=== PATIENT | female | born 1990 | race African-American/Black ===

== ENCOUNTER 2018-12-29 15:55 | Inpatient (IN) | payer OTHER ==
[2018-12-29] MEDS ORDERED: DEXTROSE 5%-LACTATED RINGERS 1,000 ML IV SCH (16:15)
[2018-12-29] MEDS ORDERED: AMPICILLIN SODIUM 2 GM VIAL IVPB ONE (16:15)
[2018-12-29 17:13] VITALS: BMI 39.8
[2018-12-29 18:57] LABS: BASO % 0.5 % (0-2.0); EOS % 0.6 % (0-4.5); HEMATOCRIT 36.4 % (32.4-45.2); HEMOGLOBIN 11.8 GM/dL (10.7-15.3); LYMPH % 18.2 % (8-40); MCH 27.7 pg (25.7-33.7); MCHC 32.4 g/dl (32.0-36.0); MEAN CELL VOLUME 85.7 fl (80-96); MEAN PLT VOLUME 10.9 fl (7.5-11.1); MONO % 8.9 % (3.8-10.2); NEUT % 71.8 % (42.8-82.8); PLATELET COUNT 186 K/MM3 (134-434); RBC 4.25 M/mm3 (3.60-5.2); RDW 14.5 % (11.6-15.6); WHITE BLOOD COUNT 8.6 K/mm3 (4.0-10.0)
[2018-12-29 19:04] LABS: INR 0.92 (0.83-1.09); PROTHROMBIN TIME (PATIENT) 10.8 SEC (9.7-13.0)
[2018-12-29 19:06] LABS: ACTIVATED PTT 27.9 SECONDS (25.2-36.5)
[2018-12-29 19:30] LABS: BLOOD UREA NITROGEN 9.1 mg/dL (7-18); CALCIUM 8.4 mg/dL (8.5-10.1); CREATININE 0.7 mg/dL (0.55-1.3); POTASSIUM 4.2 mmol/L (3.5-5.1)
[2018-12-29] MEDS ORDERED: AMPICILLIN SODIUM 1 GM VIAL ONE (20:58)
[2018-12-29] MEDS: AMPICILLIN SODIUM 1 GM VIAL IVPB SCH (21:00)
[2018-12-29] MEDS ORDERED: DINOPROSTONE 10 MG VAGINAL SUPPOSITORY VG ONE (21:15)
--- NOTE | 2018-12-29 22:23 | PN ---
Ante-Partal Exam - Subjective Subjective: I was asked by Dr. Nelson to begin cervical ripening for this patient. Pt was discussed with Dr. Nelson, chart was reviewed, info & Hx were discussed with pt. She is a 28yo P0 with at EGA 40w6d admitted with PROM and not in labor. Pt's care was complicated by late care visit at ~26wks, maternal obesity, post term , prior Hx of PCOS. She had a positive vaginal GBS cx. Vital Signs: Vital Signs Temperature 99.8 F H 12/29/18 20:00 Pulse Rate 82 12/29/18 20:00 Respiratory Rate 16 12/29/18 20:00 Blood Pressure 139/89 12/29/18 20:00 O2 Sat by Pulse Oximetry (%) Bleeding: No Headache: No Visual changes: No Right upper quadrant pain: No Pain (scale 1-10): 0 - Contractions Contractions: No - Exam during Labor Heart Rate: 140 Variability: Moderate Heart Rate Location: Midline Category: I Monitor Accelerations: Present Monitor Decelerations: None Exam: Vaginal Dilatation (cm): 0 Amniotic Membrane Status: Leaking Nitrazine Test: Positive Amniotic Fluid: Clear Presentation: Vertex Station: -4 Remarks: Adequate Gynecoid pelvimetry, EFW 8.5 lbs by Enrique's maneuvers. - Intrapartum Hemorrhage Risk Medium Risk Factors: None High Risk Factors: None Risk Score: 0 Risk Level: Low Risk - Assessment/Plan Assessment/Plan: 28yo P0 with PROM, not in labor. No contractions reported by patient or noted on monitor. Fetus with Category I tracing and requires no intervention. Cervix is unfavorable. Gynecoid pelvimetry. We had long discussion re: risks, benefits , and alternatives of labor induction. I explained the options of expectant management awaiting spontaneous labor, induction of labor, and elective section. The risks of uterine tachysystole, distress, uterine rupture, need for emergency C/S, hemorrhage, infection, scarring, etc. were discussed. We also discussed the risks of meconium aspiration, shoulder dystocia , and anesthesia options. The pt requested to proceed with Cervidil cervical ripening and labor induction. We discussed the alternative methods of induction with Cytotec, Folley ballon, and pitocin. The pt prefers Cervidil followed by pitocin, if needed. Further patient care and labor management are per Dr. Nelson. Pt is aware of that.
[2018-12-30] MEDS: AMPICILLIN SODIUM 1 GM VIAL IVPB SCH ×6 (01:00→21:00)
[2018-12-30] MEDS ORDERED: AMPICILLIN SODIUM 1 GM VIAL ONE ×6 (01:04→20:39)
[2018-12-30] MEDS ORDERED: SODIUM CHLORIDE 100 ML IVPB ONE ×3 (07:19→15:28)
[2018-12-30] MEDS ORDERED: DINOPROSTONE 10 MG VAGINAL SUPPOSITORY VG ONE (10:00)
--- NOTE | 2018-12-30 10:03 | HP ---
Past Medical History - Admission Chief Complaint: Leakage of fluid History of Present Illness: 28 yo , @ 40.6 weeks gestation, EDC 12/23/18, admitted for rupture of membrane. Upon admission cervix was closed. History Source: Patient Limitations to Obtaining History: No Limitations - Past Medical History ...: 1 ...Para: 0 ...EDC by Lorenzo: 12/23/18 - Past Surgical History Past Surgical History: Yes: None Hx Myomectomy: No Hx Transabdominal Cerclage: No - Smoking History Smoking history: Never smoked Have you smoked in the past 12 months: No Aproximately how many cigarettes per day: 0 - Alcohol/Substance Use Hx Alcohol Use: No History of Substance Use: reports: None - Social History Usual Living Arrangement: Yes: With Parent History of Recent Travel: No Home Medications - Allergies Allergies/Adverse Reactions: Allergies Allergy/AdvReac Type Severity Reaction Status Date / Time No Known Allergies Allergy Verified 12/29/18 16:59 - Home Medications Home Medications: Ambulatory Orders Pnv No.95/Ferrous Fum/Folic AC [ Vitamin Tablet] 1 each PO DAILY Family Medical History Family History: Unremarkable Review of Systems - Review of Systems Constitutional: reports: No Symptoms Eyes: reports: No Symptoms HENT: reports: No Symptoms Neck: reports: No Symptoms Cardiovascular: reports: No Symptoms Respiratory: reports: No Symptoms Gastrointestinal: reports: No Symptoms Genitourinary: reports: Other (Leakage of fluid) Breasts: reports: No Symptoms Reported Musculoskeletal: reports: No Symptoms Integumentary: reports: No Symptoms Neurological: reports: No Symptoms Endocrine: reports: No Symptoms Hematology/Lymphatic: reports: No Symptoms Psychiatric: reports: No Symptoms Pain Intensity: 0 Physical Exam - Maternity Vital Signs: Vital Signs Temperature 98.1 F 12/30/18 09:00 Pulse Rate 80 12/30/18 09:00 Respiratory Rate 18 12/30/18 09:00 Blood Pressure 133/84 12/30/18 09:00 O2 Sat by Pulse Oximetry (%) Constitutional: Yes: Well Nourished Eyes: Yes: Conjunctiva Clear HENT: Yes: Atraumatic Neck: Yes: Supple Cardiovascular: Yes: Regular Rate and Rhythm Lungs: Clear to auscultation - Abdominal Exam/OB Number of Fetuses: Single Presentation: Vertex - Vaginal Exam/OB Amniotic Membrane Status: Ruptured Amniotic Fluid: Yes: Clear Presentation: Vertex/Position Station: -3 - Physical Exam Musculoskeletal: Yes: WNL Extremities: Yes: WNL ...Motor Strength: WNL Psychiatric: Yes: Alert, Oriented - Labs Lab Results: CBC, BMP 12/29/18 18:10 12/29/18 18:10 Problem List - Problems (1) Postmaturity , 40-42 weeks gestation Code(s): O48.0 - POST-TERM (2) Rupture of membranes with clear amniotic fluid Code(s): GEK5277 - Assessment/Plan Spontaneous rupture of membrane at 40 weeks Admit to L&D Cervidil induction
[2018-12-30] MEDS: DEXTROSE 5%-LACTATED RINGERS 1,000 ML IV SCH (12:30)
[2018-12-30] MEDS ORDERED: OXYTOCIN 30 UNITS in 0.9% NS 30 UNIT/500 ML INFUS.BAG IVPB ONE (21:33)
--- NOTE | 2018-12-30 21:41 | PN ---
Progress Note (short form) - Note Progress Note: 28 yo Para 0, @ 41 weeks gestation, EDC 12/23/18, admitted for spontaneous rupture of membrane, is status post cervidil induction. She had 2 cervidils placed over the las 24 hours but the cervix failed to dilate. FHR : Reassuring [place] : + irregular contractions VE : Cervix closed, + leakage of fluid A/P : Spontaneous rupture of membrane Status post cervidil Pitocin augmentation Analgesia as needed Problem List - Problems (1) Postmaturity , 40-42 weeks gestation Code(s): O48.0 - POST-TERM (2) Rupture of membranes with clear amniotic fluid Code(s): [id number] -
[2018-12-30] MEDS ORDERED: OXYTOCIN 30 UNITS in 0.9% NS 30 UNIT/500 ML INFUS.BAG IVPB SCH (21:45)
[2018-12-31] MEDS ORDERED: AMPICILLIN SODIUM 1 GM VIAL ONE ×5 (00:50→17:03)
[2018-12-31] MEDS: AMPICILLIN SODIUM 1 GM VIAL IVPB SCH ×6 (01:00→20:30)
[2018-12-31] MEDS ORDERED: BUTORPHANOL TARTRATE 2 MG/ML VIAL IVPUSH PRN (01:34)
[2018-12-31] MEDS ORDERED: PROMETHAZINE HCL 25 MG/1 ML VIAL IVPB PRN (01:34)
[2018-12-31] MEDS ORDERED: BUTORPHANOL TARTRATE 1 MG/ML VIAL ONE ×2 (01:35)
[2018-12-31] MEDS ORDERED: ELECTROLYTE-148 SOLN 500 ML IV ONE ×2 (07:00→20:35)
--- NOTE | 2018-12-31 07:20 | PN ---
Progress Note (short form) - Note Progress Note: 28 yo Para 0, @ 41 weeks gestation, EDC 12/23/18, admitted for spontaneous rupture of membrane, is status post cervidil induction. She's now on Pitocin augmentation. She c/o moderate discomfort. She had one dose of stadol over night. FHR : Reassuring [place] : + irregular contractions VE : Cervix : 4/100/-1 A/P : Spontaneous rupture of membrane Status post cervidil Continue pitocin augmentation Consider epidural anesthesia Problem List - Problems (1) Postmaturity , 40-42 weeks gestation Code(s): O48.0 - POST-TERM (2) Rupture of membranes with clear amniotic fluid Code(s): LAW3691 -
[2018-12-31] MEDS ORDERED: FENTANYL/BUPIVACAINE/NS/PF - PCEA - 50 ML DISP.SYRIN EP ONE ×3 (08:34→18:51)
[2018-12-31] MEDS ORDERED: ELECTROLYTE-148 SOLN 1,000 ML IV SCH (08:45)
--- NOTE | 2018-12-31 08:48 | PN ---
Ante-Partal Exam - Subjective Subjective: PT comfortable s/p epidural. Vital Signs: Vital Signs Temperature 98.3 F 12/31/18 07:00 Pulse Rate 93 H 12/31/18 07:00 Respiratory Rate 20 12/31/18 07:00 Blood Pressure 123/72 12/31/18 07:00 O2 Sat by Pulse Oximetry (%) Bleeding: Yes Bleeding Description: Mild Headache: No Visual changes: No Right upper quadrant pain: No Pain (scale 1-10): 0 - Contractions Contractions: Yes Regularity: Regular - Exam during Labor Heart Rate: 145 Variability: Moderate Category: I Monitor Accelerations: Present Monitor Decelerations: None (had one prolonged deceleration s/p epidural, recovered, now cat 1) Exam: Vaginal Dilatation (cm): 6 Effacement (%): 90 Amniotic Membrane Status: Ruptured Nitrazine Test: Positive Presentation: Vertex Station: -1 - Assessment/Plan Assessment/Plan: Pt comfortable s/p epidural continue pitocin re evaluate in 3-4 hours/prn continue ampicillin
[2018-12-31] MEDS ORDERED: FENTANYL/BUPIVACAINE/NS/PF - PCEA - 50 ML DISP.SYRIN EP SCH (08:55)
[2018-12-31] MEDS ORDERED: NALOXONE HCL 0.4 MG/ML VIAL IVPUSH PRN (08:57)
[2018-12-31] MEDS: DEXTROSE 5%-LACTATED RINGERS 1,000 ML IV SCH (11:51)
--- NOTE | 2018-12-31 14:08 | PN ---
Ante-Partal Exam - Subjective Subjective: Pt comfortable. Vital Signs: Vital Signs Temperature 98.3 F 12/31/18 13:00 Pulse Rate 83 12/31/18 12:45 Respiratory Rate 20 12/31/18 12:45 Blood Pressure 135/84 12/31/18 12:45 O2 Sat by Pulse Oximetry (%) 98 12/31/18 12:45 Bleeding: Yes Bleeding Description: Mild Headache: No Visual changes: No Right upper quadrant pain: No Pain (scale 1-10): 0 - Contractions Contractions: Yes Regularity: Regular Intensity: Mod/Strong - Exam during Labor Heart Rate: 145 Category: I Monitor Accelerations: Present Monitor Decelerations: None Exam: Vaginal Dilatation (cm): 8 Effacement (%): 100 Presentation: Vertex Station: 0 - Assessment/Plan Assessment/Plan: Continue pitocin anticipate
[2018-12-31] MEDS ORDERED: LIDOCAINE HCL 1% PRESERVATIVE FREE - 30ML VIAL ONE (17:03)
[2018-12-31] MEDS ORDERED: OXYTOCIN 20 UNITS in 0.9% NS 20 UNIT/1,000 ML INFUS.BAG IV ONE (17:03)
--- NOTE | 2018-12-31 18:34 | PN ---
Ante-Partal Exam - Subjective Subjective: Pt still comfortable Vital Signs: Vital Signs Temperature 99.0 F 12/31/18 17:00 Pulse Rate 111 H 12/31/18 18:15 Respiratory Rate 20 12/31/18 18:15 Blood Pressure 122/83 12/31/18 18:15 O2 Sat by Pulse Oximetry (%) 100 12/31/18 18:15 Bleeding: Yes (bloody show) Bleeding Description: Mild Headache: No Visual changes: No Right upper quadrant pain: No - Contractions Contractions: Yes Regularity: Regular Intensity: Moderate - Exam during Labor Heart Rate: 155 Variability: Moderate Category: I Monitor Accelerations: Present Monitor Decelerations: None Exam: Vaginal Dilatation (cm): 9.5 Effacement (%): 100 Amniotic Membrane Status: Ruptured Presentation: Vertex Station: 0 - Assessment/Plan Assessment/Plan: Continue pitocin attempted pushing through anterior lip of cervix allow passive descent re evaluate for pushing when patient feels pressure/in a few hours
--- NOTE | 2018-12-31 20:32 | PN ---
Progress Note (short form) - Note Progress Note: 28 yo Para 0, @ 41 weeks gestation, EDC 12/23/18, admitted for spontaneous rupture of membrane, is status post cervidil induction. She's on Pitocin augmentation. She became fully dilated 2 hours ago but head failed to descend even after trial of pushing. FHR : Reassuring [place] : + irregular contractions VE : Fully dilated/ zero station A/P : Spontaneous rupture of membrane Status post cervidil Failure of descent Suspicion of macrosomia Consent signed for primary Anesthesia and Neonatology informed Problem List - Problems (1) Postmaturity , 40-42 weeks gestation Code(s): O48.0 - POST-TERM (2) Rupture of membranes with clear amniotic fluid Code(s): [id number] - (3) Arrest of descent, delivered, current hospitalization Code(s): O62.1 - SECONDARY UTERINE INERTIA
[2018-12-31] MEDS ORDERED: CITRIC ACID/SODIUM CITRATE 30 ML UNIT-DOSE CUP PO ONE (20:35)
[2018-12-31 20:48] LABS: BASO % 0.2 % (0-2.0); HEMATOCRIT 35.8 % (32.4-45.2); HEMOGLOBIN 11.3 GM/dL (10.7-15.3); LYMPH % 5.7 % (8-40); MCH 27.2 pg (25.7-33.7); MCHC 31.5 g/dl (32.0-36.0); MEAN CELL VOLUME 86.3 fl (80-96); MEAN PLT VOLUME 10.3 fl (7.5-11.1); MONO % 9.6 % (3.8-10.2); NEUT % 84.5 % (42.8-82.8); PLATELET COUNT 171 K/MM3 (134-434); RBC 4.15 M/mm3 (3.60-5.2); RDW 15.3 % (11.6-15.6); WHITE BLOOD COUNT 15.2 K/mm3 (4.0-10.0)
[2018-12-31 21:16] LABS: ALBUMIN 2.6 g/dl (3.4-5.0); BILIRUBIN,TOTAL 0.7 mg/dL (0.2-1); BLOOD UREA NITROGEN 8.2 mg/dL (7-18); CALCIUM 8.5 mg/dL (8.5-10.1); CREATININE 1.8 mg/dL (0.55-1.3); POTASSIUM 3.3 mmol/L (3.5-5.1); TOT PROT 6.2 g/dl (6.4-8.2)
[2018-12-31] MEDS ORDERED: LIDO 2%/EPI 1:200000 PRESRVFRE (20 ML SDVIAL) ONE (21:33)
[2018-12-31] MEDS ORDERED: ceFAZolin SODIUM 1 GM VIAL ONE (21:50)
[2018-12-31] MEDS ORDERED: ONDANSETRON 4 MG/2 ML VIAL IVPUSH PRN (21:52)
[2018-12-31] MEDS ORDERED: IBUPROFEN 600 MG TABLET (FP) PO PRN (22:32)
[2018-12-31] MEDS ORDERED: IBUPROFEN 800 MG/8 ML IJ IVPB PRN (22:32)
[2018-12-31] MEDS ORDERED: oxyCODONE HCL 5 MG TABLET PO PRN (22:32)
[2018-12-31] MEDS ORDERED: METHYLERGONOVINE MALEATE 0.2 MG/1 ML AMP IM PRN (22:32)
[2018-12-31] MEDS: OXYTOCIN 20 UNITS in 0.9% NS 20 UNIT/1,000 ML INFUS.BAG IV SCH (22:35)
--- NOTE | 2018-12-31 22:35 | OP ---
Operative Note - Note: Operative Date: 12/31/18 Pre-Operative Diagnosis: Arrest of descent Operation: Primary Low Transverse Findings: Large baby boy in cephallic presentation Post-Operative Diagnosis: Same as Pre-op Surgeon: Alda Nelson Steam Frame Operator: Mackenzie Orozco Anesthesia: Epidural Specimens Removed: Placenta Estimated Blood Loss (mls): 600 Operative Report Dictated: Yes
[2018-12-31] MEDS ORDERED: HYDROmorphone *PCA* 10MG/50ML DISP.SYRIN PCA SCH (23:00)
--- NOTE | 2019-01-01 00:23 | OP ---
DATE OF OPERATION: 12/31/2018 PREOPERATIVE DIAGNOSIS: Forty-one weeks' gestation with arrest of descent. POSTOPERATIVE DIAGNOSIS: Forty-one weeks' gestation with arrest of descent. PROCEDURE: Primary low transverse section. SURGEON: Alda Nelson MD AUTO CLAIM REPRESENTATIVE: Mackenzie Orozco MD ANESTHESIA: Epidural. COMPLICATIONS: None. ESTIMATED BLOOD LOSS: 600 mL. DESCRIPTION OF PROCEDURE: Patient was taken to the operating room where epidural anesthesia was found to be adequate. The patient was then prepped and draped in appropriate sterile fashion. A Pfannenstiel skin incision was made and carried down through the underlying layer of fascia. The fascia was incised in the midline and extended laterally. The superior aspect of the fascial incision was then grasped with Bean clamp, elevated, and the rectus muscle dissected off bluntly. Attention was then turned to the anterior aspect of the fascial incision, which in a similar fashion was then grasped with Bean clamps, elevated, and the rectus muscle was dissected off bluntly. The rectus muscles were then in the midline. The peritoneum was identified and entered sharply with Metzenbaum scissors. The peritoneal incision was extended superiorly and inferiorly with good visualization of the bladder. The bladder blade was inserted. The vesicouterine peritoneum was then grasped with a pickup and entered sharply with Metzenbaum scissors. This incision was extended laterally and a bladder flap was created digitally. The bladder blade was reinserted. The lower uterine segment was then incised using a 10-blade. This incision was extended laterally. The head was delivered atraumatically. Nose and mouth were suctioned. The cord was clamped and cut. The was handed to the awaiting financial assistant. The placenta was removed manually. The uterus was exteriorized and cleared of all clots and debris. The uterine incision was repaired using 0 Biosyn in a running locked fashion. A second layer of the same suture was used as a means to provide excellent hemostasis. The pelvis was then completely irrigated. The uterus was returned to the abdomen. The peritoneal incision was closed using 2-0 Biosyn. The fascia was reapproximated using 0 Vicryl in a running fashion. The skin was closed in the subcuticular fashion using 3-0 Vicryl. The patient tolerated the procedure well. Patient was then taken to the PACU in stable condition. PATHOLOGY: Placenta. Dimas [id number] MTDD
[2019-01-01] MEDS ORDERED: OXYTOCIN 20 UNITS in 0.9% NS 20 UNIT/1,000 ML INFUS.BAG IV ONE (01:31)
[2019-01-01 07:15] LABS: BASO % 0.2 % (0-2.0); HEMATOCRIT 32.5 % (32.4-45.2); HEMOGLOBIN 10.8 GM/dL (10.7-15.3); MCH 28.3 pg (25.7-33.7); MCHC 33.1 g/dl (32.0-36.0); MEAN CELL VOLUME 85.4 fl (80-96); MEAN PLT VOLUME 10.4 fl (7.5-11.1); MONO % 7.6 % (3.8-10.2); NEUT % 82.2 % (42.8-82.8); PLATELET COUNT 173 K/MM3 (134-434); RBC 3.81 M/mm3 (3.60-5.2); WHITE BLOOD COUNT 15.8 K/mm3 (4.0-10.0)
--- NOTE | 2019-01-01 09:36 | PN ---
Progress Note (short form) - Note Progress Note: 28yo F s/p C/S +duramorph. pain controlled. good result of anesthetic care. no comps cont current meds and plan
[2019-01-01] MEDS: FERROUS SO4 325 MG TABLET (FP) PO SCH ×2 (10:13→22:21)
[2019-01-01] MEDS: PRENATAL VITAMINS W/ FOLIC ACID TABLET (FP) PO SCH (10:14)
[2019-01-01] MEDS: SIMETHICONE 80 MG TAB.CHEW (FP) PO PRN ×2 (10:14→14:57)
[2019-01-01] MEDS: OXYTOCIN 20 UNITS in 0.9% NS 20 UNIT/1,000 ML INFUS.BAG IV SCH (11:49)
[2019-01-01] MEDS: ACETAMINOPHEN 325 MG TABLET (FP) PO PRN (14:55)
[2019-01-01] MEDS: IBUPROFEN 600 MG TABLET (FP) PO PRN (14:56)
--- NOTE | 2019-01-01 17:17 | PN ---
Progress Note (short form) - Note Progress Note: Called due to elevated BP will start on Labetalol and call renal consult
[2019-01-01] MEDS ORDERED: PCA PUMP KEY 1 EACH EACH ONE (17:57)
[2019-01-01] MEDS: LABETALOL HCL 200 MG TABLET (FP) PO SCH (22:23)
[2019-01-01] MEDS ORDERED: BISACODYL 10 MG SUPP.RECT RC PRN (22:32)
--- NOTE | 2019-01-02 00:09 | PN ---
Post Note - Post Date of Delivery: 12/31/18 Post Day: 1 Vital Signs: Vital Signs - 24 hr 01/01/19 01/01/19 01/01/19 00:20 02:00 03:00 Temperature 99 F Pulse Rate 92 H 92 H Respiratory 20 18 18 Rate Blood Pressure 140/88 131/84 O2 Sat by Pulse 98 97 Oximetry (%) 01/01/19 01/01/19 01/01/19 04:00 05:00 06:00 Temperature 98.7 F Pulse Rate 90 Respiratory 18 18 18 Rate Blood Pressure 140/90 O2 Sat by Pulse Oximetry (%) 01/01/19 01/01/19 01/01/19 07:00 08:00 09:00 Temperature 97.6 F Pulse Rate 69 Respiratory 16 18 20 Rate Blood Pressure 136/84 O2 Sat by Pulse Oximetry (%) 01/01/19 01/01/19 01/01/19 10:00 11:00 12:00 Temperature Pulse Rate Respiratory 20 18 20 Rate Blood Pressure O2 Sat by Pulse Oximetry (%) 01/01/19 01/01/19 01/01/19 13:00 14:00 14:30 Temperature 99 F Pulse Rate 86 69 Respiratory 18 20 20 Rate Blood Pressure 146/91 136/84 O2 Sat by Pulse Oximetry (%) 01/01/19 01/01/19 01/01/19 15:00 16:00 17:00 Temperature Pulse Rate 80 Respiratory 18 20 20 Rate Blood Pressure 160/94 O2 Sat by Pulse Oximetry (%) 01/01/19 01/01/19 01/01/19 17:15 18:00 19:00 Temperature 99.1 F Pulse Rate 82 Respiratory 20 20 18 Rate Blood Pressure 130/85 O2 Sat by Pulse Oximetry (%) 01/01/19 01/01/19 01/01/19 20:00 21:00 22:00 Temperature 98.4 F Pulse Rate 84 Respiratory 18 18 18 Rate Blood Pressure 118/80 O2 Sat by Pulse Oximetry (%) Labs: Laboratory Results - last 24 hr 01/01/19 06:35 WBC 15.8 H RBC 3.81 Hgb 10.8 Hct 32.5 MCV 85.4 MCH 28.3 MCHC 33.1 RDW 15.0 Plt Count 173 MPV 10.4 Absolute Neuts (auto) 13.0 H Neutrophils % 82.2 Lymphocytes % 10.0 D Monocytes % 7.6 Eosinophils % 0.0 Basophils % 0.2 Nucleated RBC % 0 - Subjective Subjective: No Complaints, No Nausea or vomiting - Objective Afebrile: Yes Breast: Not engorged Abdomen: Soft, Non-tender, Other (dressing removed) Uterus: Fundus firm, Non-tender Vagina: Scant lochia Extremities: Non-tender - Assessment/Plan (1) delivery delivered Assessment: Other (SP CS POD1) Plan: Routine Care (2) Arrest of descent, delivered, current hospitalization Assessment: Other Plan: Routine Care
[2019-01-02] MEDS: SIMETHICONE 80 MG TAB.CHEW (FP) PO PRN ×3 (01:17→22:22)
[2019-01-02] MEDS: IBUPROFEN 600 MG TABLET (FP) PO PRN ×2 (01:18→22:22)
[2019-01-02] MEDS: ACETAMINOPHEN 325 MG TABLET (FP) PO PRN ×3 (01:19→22:22)
--- NOTE | 2019-01-02 06:46 | PN ---
Post Note - Post Date of Delivery: 12/31/18 Vital Signs: Vital Signs - 24 hr 01/01/19 01/01/19 01/01/19 07:00 08:00 09:00 Temperature 97.6 F Pulse Rate 69 Respiratory 16 18 20 Rate Blood Pressure 136/84 01/01/19 01/01/19 01/01/19 10:00 11:00 12:00 Temperature Pulse Rate Respiratory 20 18 20 Rate Blood Pressure 01/01/19 01/01/19 01/01/19 13:00 14:00 14:30 Temperature 99 F Pulse Rate 86 69 Respiratory 18 20 20 Rate Blood Pressure 146/91 136/84 01/01/19 01/01/19 01/01/19 15:00 16:00 17:00 Temperature Pulse Rate 80 Respiratory 18 20 20 Rate Blood Pressure 160/94 01/01/19 01/01/19 01/01/19 17:15 18:00 19:00 Temperature 99.1 F Pulse Rate 82 Respiratory 20 20 18 Rate Blood Pressure 130/85 01/01/19 01/01/19 01/01/19 20:00 21:00 22:00 Temperature 98.4 F Pulse Rate 84 Respiratory 18 18 18 Rate Blood Pressure 118/80 01/02/19 01/02/19 01:00 05:00 Temperature 98.8 F 98 F Pulse Rate 95 H 65 Respiratory 18 18 Rate Blood Pressure 126/81 132/84 Labs: Laboratory Results - last 24 hr 01/01/19 06:35 WBC 15.8 H RBC 3.81 Hgb 10.8 Hct 32.5 MCV 85.4 MCH 28.3 MCHC 33.1 RDW 15.0 Plt Count 173 MPV 10.4 Absolute Neuts (auto) 13.0 H Neutrophils % 82.2 Lymphocytes % 10.0 D Monocytes % 7.6 Eosinophils % 0.0 Basophils % 0.2 Nucleated RBC % 0 - Subjective Subjective: No Complaints - Objective Afebrile: Yes Breast: Not engorged Abdomen: Soft, Non-tender Uterus: Fundus firm Vagina: Scant lochia Extremities: Non-tender - Assessment/Plan (1) delivery delivered Assessment: Other (POD 2) Plan: Routine Care (2) Arrest of descent, delivered, current hospitalization Assessment: Other (SP CS) Plan: Routine Care
[2019-01-02] MEDS: PRENATAL VITAMINS W/ FOLIC ACID TABLET (FP) PO SCH (09:48)
[2019-01-02] MEDS: FERROUS SO4 325 MG TABLET (FP) PO SCH ×2 (09:48→22:18)
[2019-01-02] MEDS ORDERED: DIPHTH,PERTUSS(ACELL),TET 0.5 ML DISP.SYRIN IM ONE (10:00)
[2019-01-02] MEDS ORDERED: FLU VACC QS2019-20(6MOS UP)/PF 60 MCG/0.5 ML SYRINGE IM ONE (10:00)
[2019-01-02] MEDS ORDERED: FLU VACCINE QUAD 60 MCG/0.5 ML (MDV 19-20) IM ONE (10:00)
[2019-01-02 10:27] LABS: ALBUMIN 2.1 g/dl (3.4-5.0); BILIRUBIN,TOTAL 0.4 mg/dL (0.2-1); BLOOD UREA NITROGEN 7.9 mg/dL (7-18); CALCIUM 8.4 mg/dL (8.5-10.1); CREATININE 0.7 mg/dL (0.55-1.3); POTASSIUM 3.3 mmol/L (3.5-5.1); TOT PROT 5.5 g/dl (6.4-8.2)
[2019-01-02] MEDS: LABETALOL HCL 200 MG TABLET (FP) PO SCH (10:47)
--- NOTE | 2019-01-02 11:59 | CONSULT ---
Consult - text type - Consultation Consultation Note: Renal consult for hypertension This is a 28 year old woman with no significant past medical history who presented for induction of labor s/p on 12-31 now with hypertension. Seen at the bedside. Offers no acute complaints. Denies any EUGENE, blurry vision, chest pain, shortness of breath. Was told that her BP was elevated during periods of her but did not require medications. Deneis any leg swelling. PMhx: as above Allergies: NKDA Family hx: NC Social Hx: no T/A/D ROS: as per HPI, all other pertinent ros negative Home Medications Medication Instructions Recorded Pnv No.95/Ferrous Fum/Folic AC 1 each PO DAILY 12/28/18 [ Vitamin Tablet] Vital Signs Temperature 98 F 01/02/19 05:00 Pulse Rate 65 01/02/19 05:00 Respiratory Rate 18 01/02/19 05:00 Blood Pressure 132/84 01/02/19 05:00 O2 Sat by Pulse Oximetry (%) 97 01/01/19 02:00 NAD awake and alert No LE edema CBC, BMP 01/01/19 06:35 01/02/19 09:13 Current Medications Acetaminophen (Tylenol -) 650 mg PO Q4H PRN PRN Reason: PAIN LEVEL 1-5 Last Admin: 01/02/19 01:19 Dose: 650 mg Bisacodyl (Dulcolax Suppository -) 10 mg RC PRN PRN PRN Reason: CONSTIPATION Butorphanol Tartrate (Butorphanol Tartrate) 2 mg IVPUSH Q4H PRN PRN Reason: PAIN Last Admin: 12/31/18 01:50 Dose: 2 mg Diphenhydramine HCl (Benadryl Injection -) 25 mg IVPUSH Q4H PRN PRN Reason: Pruritis Fentanyl/Bupivacaine/Sodium Chlor (Bupivicaine 0.125%/Fentanyl 2mcg/Ml Pcea) 50 ml EP ASDIR RONN; Protocol Last Admin: 12/31/18 08:00 Dose: 50 ml Ferrous Sulfate (Feosol -) 325 mg PO BID RONN Last Admin: 01/02/19 09:48 Dose: 325 mg Dextrose/Lactated Ringer's (D5-Lr -) 1,000 mls @ 125 mls/hr IV ASDIR RONN Last Admin: 12/31/18 11:51 Dose: Not Given Oxytocin/Sodium Chloride (Normal Saline+30 Units Oxytocin) 30 unit in 500 mls @ 1 mls/hr IVPB TITR [facility]; Protocol Last Titration: 12/31/18 07:00 Dose: 1.2 unit/hr, 20 mls/hr Parenteral Electrolytes (Plasma-Lyte 148 -) 1,000 mls @ 125 mls/hr IV ASDIR [facility] Last Admin: 12/31/18 08:00 Dose: 125 mls/hr Oxytocin/Sodium Chloride (Normal Saline+20 Units Oxytocin -) 20 unit in 1,000 mls @ 125 mls/hr IV ASDIR [facility] Last Admin: 01/01/19 11:49 Dose: 125 mls/hr Ibuprofen (Motrin -) 600 mg PO Q4H PRN PRN Reason: PAIN LEVEL 1-5 Last Admin: 01/02/19 01:18 Dose: 600 mg Labetalol HCl (Normodyne -) 200 mg PO BID [facility] Last Admin: 01/02/19 10:47 Dose: 200 mg Methylergonovine Maleate (Methergine Injection -) 0.2 mg IM Q4H PRN PRN Reason: Excessive Bleeding (L&D) Naloxone HCl (Narcan -) 0.4 mg IVPUSH PRN PRN PRN Reason: Sedation Ondansetron HCl (Zofran Injection) 4 mg IVPUSH Q4H PRN PRN Reason: NAUSEA Oxycodone HCl (Roxicodone -) 5 mg PO Q4H PRN PRN Reason: PAIN LEVEL 4 - 6 Multivit/Folic Acid/Iron ( Vitamins (Sjr) -) 1 tab PO DAILY [facility] Last Admin: 01/02/19 09:48 Dose: 1 tab Promethazine HCl (Phenergan Injection -) 25 mg IVPB Q6H PRN PRN Reason: NAUSEA AND/OR VOMITING Last Admin: 12/31/18 01:50 Dose: 25 mg Simethicone (Mylicon -) 80 mg PO Q4H PRN PRN Reason: GAS Last Admin: 01/02/19 01:17 Dose: 80 mg 28 year old woman with no significant past medical history who presented for induction of labor s/p on 12-31 now with hypertension. 1. hypertension r/o pre-eclampsia 2. Acute kidney injury now resolved vs. lab error 3. Mild Hypokalemia 4. s/p Check urine studies for urine protein to creatinine ratio. Nol LFT abnormalities or thrombocytopenia to suggest HELLP syndrome Continue Labetalol 200mg Q6h PRN for systolic BP > 140 or diastolic BP > 90 Low salt diet pain control with minimized NSAID use Oral intake of potassium foods as tolerated Cr is improved today Will trend BP the next 24 hours and plan for discharge tomorrow
[2019-01-02] MEDS ORDERED: IBUPROFEN 400 MG TABLET (FP) PO PRN (12:00)
--- NOTE | 2019-01-02 17:48 | PATH ---
Surgical Pathology Report Patient Name: ROMI PAUL Med. Rec. #: [id number] /Age/Gender: 1990 (Age: 28) / F Account: [id number] Location: [facility] OBS/METER TESTER POLYPHASE Taken: 12/31/2018 Received: 01/01/2019 Reported: 01/02/2019 Physicians: Alda Nelson M.D. Specimen(s) Received PLACENTA Clinical History Arrest of descent Final Diagnosis PLACENTA, SECTION: 766 G THIRD TRIMESTER PLACENTA WITH TRIVASCULAR UMBILICAL CORD AND UNREMARKABLE PLACENTAL MEMBRANES. Electronically Signed Lindsey Steele M.D. Gross Description The specimen is received fresh labeled placenta and is a 766 gram, 22 x 16 x 2.5 cm. placenta with attached membranes and umbilical cord. The attached membranes are clear, translucent and insert marginally. The umbilical cord measures 30 cm. in length and averages 1.5 cm. in diameter. The cord inserts eccentrically, 4 cm. to the nearest margin. No true knots or strictures are identified. Cut surface of the umbilical cord reveals 3 vessels. The surface is waller-blue with minimal fibrin deposition and appropriate caliber vessels. The maternal surface is red-brown with focal defects. Sectioning reveals red-brown, spongy parenchyma. No lesions are identified. Raised Printer sections are submitted in three cassettes as follows: 1- membrane rolls and umbilical cord; 2-3- full thickness sections of placenta. MLSZ/01/01/2019 sanml/01/01/2019
[2019-01-02] MEDS: LABETALOL HCL 200 MG TABLET (FP) PO PRN (22:18)
--- NOTE | 2019-01-03 05:20 | DS ---
Physical Exam-[employer] Vital Signs: Vital Signs Temperature 98.4 F 01/03/19 01:31 Pulse Rate 73 01/03/19 01:31 Respiratory Rate 20 01/03/19 01:31 Blood Pressure 125/75 01/03/19 01:31 O2 Sat by Pulse Oximetry (%) 97 01/01/19 02:00 Constitutional: Yes: Well Nourished, No Distress, Calm HENT: Yes: Atraumatic, Normocephalic Neck: Yes: Trachea Midline Cardiovascular: Yes: Regular Rate and Rhythm Gastrointestinal: Yes: Normal Bowel Sounds, Soft External Genitalia: Yes: Normal ....Post : Yes: Uterus firm, Uterus non-tender Extremities: Yes: WNL, Other (no clonus) Wound/Incision: Yes: Clean/Dry, Well Approximated Neurological: Yes: Alert, Oriented Psychiatric: Yes: Alert, Oriented Labs: CBC, BMP 01/01/19 06:35 01/02/19 09:13 Delivery - Delivery Type of Anesthesia: Epidural Episiotomy/Laceration: None EBL (cc): 600 Delivery, Single - Stages of Labor Date 1st Stage Initiatied: 12/29/18 Time 1st Stage Initiated: 15:30 Date 2nd Stage Initiated: 12/31/18 Time 2nd Stage Initiated: 20:30 Date of Delivery: 12/31/18 Time of Delivery: 21:56 Time Placenta Delivered: 21:57 Placenta: Yes: Manual Removal - 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: Yes Name: Nathaniel Pires Gender: Male Weight: 8 lb 7 oz Position: Right, OA Total Hours ROM (Hrs/Mins): [id number] - 1 Minute Total Score: 9 5 Minutes Total Score: 9 - Feeding Plan Initial Plan: Exclusive throughout hospitalization Discharge Summary Reason For Visit: SROM,EARLY LABOR Current Active Problems Arrest of descent, delivered, current hospitalization (Acute) delivery delivered (Acute) Postmaturity , 40-42 weeks gestation (Acute) Rupture of membranes with clear amniotic fluid (Acute) Procedures: Principal: Primary Low Transverse C Section Hospital Course: Patient admitted on 12/29 with spontaneous rupture of membranes. Labor was induced. On Monday12/31/18, the patient had a primary section due to arrest of descent. During the later part of labor and post the patient developed hypertension, Nephrology was consulted and is following. Pt started on labetalol 200mg which controlled her blood pressures. She was stabilized and planned for discharge home on post op day 3. Health Concerns: Elevated blood pressure Plan of Treatment: Continue with Labetalol for elevated blood pressure, to follow up within a week for blood pressure check Goals: Blood pressure < 140/90 pain control ambulation Condition: Good - Instructions Diet, Activity, Other Instructions: Physical activity Resume your normal everyday activity as tolerated no heavy lifting or strenuous exercise until seen by your surgeon. You may walk unlimited amounts and climb stairs. You may resume driving the car when you feel safe and comfortable behind the wheel. No sexual activity as instructed for 6 weeks. Wound care If there are tapes on the skin under leave them in place. They will peel off in the next 7 to 10 days. Do Not Peel them off. You may shower the day after surgery. If there are tapes present on the skin, you may shower over them. Diet There are no dietary restrictions. Eat healthy, high-fiber foods. Drink 6 to 8 glasses of liquid each day. This will assist in keeping your bowels regular. Pain management You may take Tylenol or Ibuprofen (for example, Motrin, Advil etc.) as needed for mild pain. If any stronger pain medication is sent to your pharmacy, please take for moderate to severe pain as directed. Call MD for any of the following: Severe pain not relieved by medication Fever of 101 or higher Excessive bleeding or drainage on dressing Inability to urinate Referrals: Pablo Mendoza MD [Staff Physician] - 1 Week Elina Dixon DO [Staff Physician] - 1 Week Disposition: HOME - Home Medications Comprehensive Discharge Medication List: Ambulatory Orders Pnv No.95/Ferrous Fum/Folic AC [ Vitamin Tablet] 1 each PO DAILY
[2019-01-03] MEDS: LABETALOL HCL 200 MG TABLET (FP) PO PRN ×2 (05:59→12:29)
[2019-01-03 07:51] LABS: BASO % 0.3 % (0-2.0); EOS % 1.2 % (0-4.5); HEMATOCRIT 27.3 % (32.4-45.2); HEMOGLOBIN 9.2 GM/dL (10.7-15.3); LYMPH % 19.3 % (8-40); MCH 28.5 pg (25.7-33.7); MCHC 33.6 g/dl (32.0-36.0); MEAN CELL VOLUME 84.8 fl (80-96); MEAN PLT VOLUME 9.1 fl (7.5-11.1); MONO % 8.5 % (3.8-10.2); NEUT % 70.7 % (42.8-82.8); PLATELET COUNT 172 K/MM3 (134-434); RBC 3.22 M/mm3 (3.60-5.2); RDW 14.8 % (11.6-15.6); WHITE BLOOD COUNT 9.1 K/mm3 (4.0-10.0)
[2019-01-03] MEDS: FERROUS SO4 325 MG TABLET (FP) PO SCH (09:52)
[2019-01-03] MEDS: PRENATAL VITAMINS W/ FOLIC ACID TABLET (FP) PO SCH (09:52)
[2019-01-03 11:33] VITALS: TEMP 98
[2019-01-03 12:25] VITALS: PULSE 70
[2019-01-03 15:02] VITALS: BP 136/84
--- NOTE | 2019-01-03 17:00 | PN ---
Progress Note (short form) - Note Progress Note: Renal follow up for hypertension Seen and examined at the bedside no acute complaints no EUGENE, dizziness, CP, SOB, N/V Vital Signs Temperature 98.0 F 01/03/19 11:32 Pulse Rate 70 01/03/19 12:00 Respiratory Rate 20 01/03/19 12:00 Blood Pressure 136/84 01/03/19 15:01 O2 Sat by Pulse Oximetry (%) 97 01/01/19 02:00 Intake & Output 12/31/18 01/01/19 01/02/19 01/03/19 23:59 23:59 23:59 23:59 Intake Total 1600 1900 Output Total 300 3300 500 Balance 1300 -1400 -500 NAD no LE edema CBC, BMP 01/03/19 07:35 01/02/19 09:13 Current Medications Acetaminophen (Tylenol -) 650 mg PO Q4H PRN PRN Reason: PAIN LEVEL 1-5 Last Admin: 01/02/19 22:22 Dose: 650 mg Bisacodyl (Dulcolax Suppository -) 10 mg RC PRN PRN PRN Reason: CONSTIPATION Butorphanol Tartrate (Butorphanol Tartrate) 2 mg IVPUSH Q4H PRN PRN Reason: PAIN Last Admin: 12/31/18 01:50 Dose: 2 mg Diphenhydramine HCl (Benadryl Injection -) 25 mg IVPUSH Q4H PRN PRN Reason: Pruritis Ferrous Sulfate (Feosol -) 325 mg PO BID RONN Last Admin: 01/03/19 09:52 Dose: 325 mg Dextrose/Lactated Ringer's (D5-Lr -) 1,000 mls @ 125 mls/hr IV ASDIR RONN Last Admin: 12/31/18 11:51 Dose: Not Given Oxytocin/Sodium Chloride (Normal Saline+30 Units Oxytocin) 30 unit in 500 mls @ 1 mls/hr IVPB TITR RONN; Protocol Last Titration: 12/31/18 07:00 Dose: 1.2 unit/hr, 20 mls/hr Parenteral Electrolytes (Plasma-Lyte 148 -) 1,000 mls @ 125 mls/hr IV ASDIR RONN Last Admin: 12/31/18 08:00 Dose: 125 mls/hr Oxytocin/Sodium Chloride (Normal Saline+20 Units Oxytocin -) 20 unit in 1,000 mls @ 125 mls/hr IV ASDIR RONN Last Admin: 01/01/19 11:49 Dose: 125 mls/hr Ibuprofen (Motrin -) 600 mg PO Q4H PRN PRN Reason: PAIN LEVEL 1-5 Last Admin: 01/02/19 22:22 Dose: 600 mg Ibuprofen (Motrin -) 400 mg PO Q6H PRN PRN Reason: PAIN LEVEL 4 - 6 Labetalol HCl (Normodyne -) 200 mg PO Q6H PRN PRN Reason: HYPERTENSION Last Admin: 01/03/19 12:29 Dose: 200 mg Methylergonovine Maleate (Methergine Injection -) 0.2 mg IM Q4H PRN PRN Reason: Excessive Bleeding (L&D) Naloxone HCl (Narcan -) 0.4 mg IVPUSH PRN PRN PRN Reason: Sedation Ondansetron HCl (Zofran Injection) 4 mg IVPUSH Q4H PRN PRN Reason: NAUSEA Oxycodone HCl (Roxicodone -) 5 mg PO Q4H PRN PRN Reason: PAIN LEVEL 4 - 6 Multivit/Folic Acid/Iron ( Vitamins (Sjr) -) 1 tab PO DAILY RONN Last Admin: 01/03/19 09:52 Dose: 1 tab Promethazine HCl (Phenergan Injection -) 25 mg IVPB Q6H PRN PRN Reason: NAUSEA AND/OR VOMITING Last Admin: 12/31/18 01:50 Dose: 25 mg Simethicone (Mylicon -) 80 mg PO Q4H PRN PRN Reason: GAS Last Admin: 01/02/19 22:22 Dose: 80 mg 28 year old woman with no significant past medical history who presented for induction of labor s/p on 12-31 now with hypertension. 1. hypertension secondary to pre-eclampsia 2. Acute kidney injury now resolved vs. lab error 3. Mild Hypokalemia 4. s/p stable for discharge home today on Labetalol 200mg Q12h (Rx called into the pharmacy) Urine studies show UPCR of 0.5 Nol LFT abnormalities or thrombocytopenia to suggest HELLP syndrome Low salt diet Explained to patient and family in detail about the symptoms of hypotension and what to do if she were to experience it To follow up in our office next week Pablo Mendoza DO
== END 2019-01-03 17:30 | disposition home or self-care (01) | DRG 540 ==
LOC: JLDR 15:55 → J3W 01-01 01:45
PROVIDERS: ADMIT Obstetrics & Gynecology; ATTEND Obstetrics & Gynecology
PROC: 10D00Z1 Extraction of Products of Conception, Low, Open Approach (ICD-10-PCS; principal; 2018-12-31)
PROC: 3E0P7VZ Introduction of Hormone into Female Reproductive, Via Natural or Artificial Opening (ICD-10-PCS; 2018-12-31)
DX: O62.1 Secondary uterine inertia (principal); O48.0 Post-term pregnancy; O26.833 Pregnancy related renal disease, third trimester; N17.9 Acute kidney failure, unspecified; Z3A.41 41 weeks gestation of pregnancy; O26.893 Other specified pregnancy related conditions, third trimester; O16.3 Unspecified maternal hypertension, third trimester; E87.6 Hypokalemia; Z37.0 Single live birth
CPT/HCPCS: 36415; 36600; 80048; 80053; 82565; 82570; 82803; 84156; 84300; 85025; 85610; 85730; 86593; 86850; 86900; 86901; 87205; 87389; 88307-TC; 90686; 90715